=== PATIENT | male | born 1965 ===

== ENCOUNTER 2021-02-04 11:02 | Inpatient (IN) | payer OTHER ==
[~2021-02-04] VITALS: Ht 172.7 cm; Wt 115.8 kg
--- NOTE | 2021-02-04 11:10 | NUR ---
PATIENT ARRIVES TO THE ER WITH COVID LIKE SYMPTOMS FOR 4 DAYS, HE IS UNVACCINATED. HE IS COUGHING, SOB, WEAK, FEVERS, AND BODY PAIN JORDAN NECK PAIN AND HEADACHE; HE HAS ABDOMINAL PAIN AND N/V AND DIARREA. HE IS ON ELIQUIS FOR PE AND THREE HEART ATTACK HX
--- NOTE | 2021-02-04 11:56 | NUR ---
patient got up oob and walking about room. asked him to please stay in the bed.
[2021-02-04 11:59] LABS: BASOPHILS % (AUTO) 0 % (0-1); EOSINOPHILS % (AUTO) 0 % (1-7); LYMPHOCYTES % (AUTO) 12 % (22-44); MEAN CORPUSCULAR HEMOGLOBIN 28.3 pg (27.5-34.5); MEAN CORPUSCULAR HGB CONC 34.4 g/dL (33.2-36.2); MEAN PLATELET VOLUME 9.4 fL (7.4-10.4); MONOCYTES % (AUTO) 7 % (2-9); NEUTROPHILS % (AUTO) 81 % (42-75); PLATELET COUNT 122 x10^3/uL (130-400); RED BLOOD COUNT 5.69 x10^6/uL (4.38-5.82); RED CELL DISTRIBUTION WIDTH 14.6 % (9.4-14.8)
[2021-02-04 12:05] LABS: ALANINE AMINOTRANSFERASE 39 U/L (12-78); ALBUMIN 2.9 g/dL (3.4-5.0); ANION GAP 6 mmol/L (5-15); CALCIUM 7.9 mg/dL (8.5-10.1); CHLORIDE 110 mmol/L (98-107); CREATININE 1.14 mg/dL (0.7-1.3)
[2021-02-04 12:12] LABS: ALKALINE PHOSPHATASE 90 U/L (45-117); BILIRUBIN,TOTAL 0.4 mg/dL (0.2-1.0); TOTAL PROTEIN 6.4 g/dL (6.4-8.2)
[2021-02-04] MEDS ORDERED: CEFTRIAXONE 1,000 MG in DEXTROSE 5% 50 ML IVPB ONE (13:00)
[2021-02-04] MEDS ORDERED: AZITHROMYCIN 500 MG in SODIUM CHLORIDE 0.9% 250 ML IV ONE (13:00)
--- NOTE | 2021-02-04 13:39 | NUR ---
PATIENT REPORT TO WANDA. PATIENT RTG.
[2021-02-04] MEDS ORDERED: DOCUSATE 100 MG CAPSULE PO PRN (14:30)
[2021-02-04] MEDS ORDERED: PROCHLORPERAZINE 5 MG/ML, 2ML IVPush PRN (14:30)
[2021-02-04] MEDS ORDERED: morphine SULFATE 10 MG/ML, 1ML IVPush PRN (14:30)
[2021-02-04] MEDS ORDERED: PLEASE ENTER ALLERGIES MC SCH ×2 (14:30→15:30)
[2021-02-04] MEDS ORDERED: LIDODERM 5% PATCH TD PRN (14:30)
[2021-02-04] MEDS ORDERED: hydrALAzine 20 MG/ML, 1ML IVPush PRN (14:30)
[2021-02-04] MEDS ORDERED: POLYETHYLENE GLYCOL 17 GM PACKET PO PRN (14:30)
[2021-02-04] MEDS ORDERED: KETOROLAC 30 MG/1 ML IV PRN (14:30)
[2021-02-04] MEDS ORDERED: ENALAPRILAT 1.25 MG/ML, 2ML IVPush PRN (14:30)
[2021-02-04] MEDS ORDERED: TRAZODONE 50MG TABLET PO PRN (14:30)
[2021-02-04] MEDS ORDERED: BISACODYL 10 MG SUPP PR PRN (14:30)
[2021-02-04] MEDS ORDERED: GUAIFENESIN/DM 200-20MG, 10ML UDC PO PRN (14:30)
[2021-02-04] MEDS ORDERED: PHARMACY MAY ADJ FOR RENAL FX MC PRN (14:30)
[2021-02-04] MEDS ORDERED: DEXAMETHASONE 4 MG/ML, 1ML IVPush ONE (14:30)
[2021-02-04 14:45] VITALS: BP 129/79
[2021-02-04] MEDS: ONDANSETRON 2MG/ML, 2ML IVPush PRN (16:06)
[2021-02-04 18:50] VITALS: BP 107/68
[2021-02-04] MEDS: APIXABAN 5 MG TABLET PO SCH (22:15)
[2021-02-04] MEDS: ASCORBIC ACID 500 MG TABLET PO SCH (22:15)
[2021-02-04] MEDS: FAMOTIDINE 20 MG/2 ML IVPush SCH (22:15)
[2021-02-04] MEDS: CYCLOBENZAPRINE 10 MG TABLET PO PRN (22:15)
[2021-02-05 01:50] VITALS: BP 96/57
[2021-02-05 06:07] LABS: BASOPHILS % (AUTO) 0 % (0-1); EOSINOPHILS % (AUTO) 0 % (1-7); LYMPHOCYTES % (AUTO) 21 % (22-44); MEAN CORPUSCULAR HEMOGLOBIN 28.3 pg (27.5-34.5); MEAN CORPUSCULAR HGB CONC 34.5 g/dL (33.2-36.2); MEAN PLATELET VOLUME 9.1 fL (7.4-10.4); MONOCYTES % (AUTO) 12 % (2-9); NEUTROPHILS % (AUTO) 67 % (42-75); PLATELET COUNT 129 x10^3/uL (130-400); RED BLOOD COUNT 5.43 x10^6/uL (4.38-5.82); RED CELL DISTRIBUTION WIDTH 14.8 % (9.4-14.8)
[2021-02-05 06:10] LABS: CHLORIDE 110 mmol/L (98-107)
[2021-02-05 06:19] LABS: ALANINE AMINOTRANSFERASE 42 U/L (12-78); ALBUMIN 2.6 g/dL (3.4-5.0); ALKALINE PHOSPHATASE 83 U/L (45-117); ANION GAP 4 mmol/L (5-15); BILIRUBIN,TOTAL 0.4 mg/dL (0.2-1.0); CALCIUM 8.4 mg/dL (8.5-10.1); CREATININE 1.09 mg/dL (0.7-1.3); TOTAL PROTEIN 6.1 g/dL (6.4-8.2)
[2021-02-05 08:50] VITALS: BP 117/72
[2021-02-05] MEDS: ONDANSETRON 2MG/ML, 2ML IVPush PRN ×2 (09:03→16:42)
[2021-02-05] MEDS: DEXAMETHASONE 1 MG TABLET PO SCH (09:05)
[2021-02-05] MEDS: AZITHROMYCIN 500 MG TABLET PO SCH (09:05)
[2021-02-05] MEDS: FAMOTIDINE 20 MG/2 ML IVPush SCH ×2 (09:05→21:01)
[2021-02-05] MEDS: ZINC SULFATE 220 MG CAPSULE PO SCH (09:05)
[2021-02-05] MEDS: APIXABAN 5 MG TABLET PO SCH ×2 (09:05→21:01)
[2021-02-05] MEDS: ASCORBIC ACID 500 MG TABLET PO SCH ×2 (09:06→21:01)
[2021-02-05] MEDS: CYCLOBENZAPRINE 10 MG TABLET PO PRN ×2 (09:16→21:18)
[2021-02-05] MEDS ORDERED: ATOR20TA37 PO (11:30)
[2021-02-05] MEDS ORDERED: FURO-92 PO (11:30)
[2021-02-05] MEDS ORDERED: CHOL400T12 PO (11:30)
[2021-02-05] MEDS ORDERED: CARV3.122 PO (11:30)
[2021-02-05] MEDS ORDERED: ASPI81TA45 PO (11:30)
[2021-02-05] MEDS ORDERED: POTA10CA PO (11:30)
[2021-02-05] MEDS ORDERED: GABA100C PO ×2 (11:30)
[2021-02-05] MEDS ORDERED: MULT-252 PO (11:30)
[2021-02-05] MEDS ORDERED: FLUO40CA2 PO (11:30)
[2021-02-05] MEDS ORDERED: CARB200T4 PO (11:30)
[2021-02-05] MEDS ORDERED: VENL37.58 PO (11:30)
[2021-02-05] MEDS ORDERED: APIX5TAB PO (11:30)
[2021-02-05] MEDS ORDERED: OMEP-110 PO (11:30)
[2021-02-05] MEDS ORDERED: TOPI100T8 PO (11:30)
[2021-02-05] MEDS ORDERED: ONDA-89 PO (11:30)
[2021-02-05] MEDS ORDERED: MONT10TA17 PO (12:16)
[2021-02-05] MEDS ORDERED: ZOLP10TA PO (12:16)
[2021-02-05] MEDS ORDERED: CETI10TA18 PO (12:16)
[2021-02-05] MEDS ORDERED: LORA-445 PO (12:16)
[2021-02-05 12:26] VITALS: BP 109/70
[2021-02-05] MEDS: CEFTRIAXONE 1,000 MG in DEXTROSE 5% 50 ML IVPB SCH (12:36)
[2021-02-05 19:29] VITALS: BP 105/61
[2021-02-06 00:59] VITALS: BP 116/71
[2021-02-06 06:34] LABS: BASOPHILS % (AUTO) 0 % (0-1); EOSINOPHILS % (AUTO) 0 % (1-7); LYMPHOCYTES % (AUTO) 9 % (22-44); MEAN CORPUSCULAR HEMOGLOBIN 28.8 pg (27.5-34.5); MEAN CORPUSCULAR HGB CONC 35.1 g/dL (33.2-36.2); MEAN PLATELET VOLUME 9.2 fL (7.4-10.4); MONOCYTES % (AUTO) 8 % (2-9); NEUTROPHILS % (AUTO) 83 % (42-75); PLATELET COUNT 169 x10^3/uL (130-400)
[2021-02-06 06:36] LABS: CHLORIDE 112 mmol/L (98-107)
[2021-02-06 06:43] LABS: ANION GAP 6 mmol/L (5-15); CALCIUM 8.5 mg/dL (8.5-10.1); CREATININE 1.07 mg/dL (0.7-1.3)
[2021-02-06 08:45] VITALS: BP 116/74
[2021-02-06] MEDS: AZITHROMYCIN 500 MG TABLET PO SCH (09:00)
[2021-02-06] MEDS: CYCLOBENZAPRINE 10 MG TABLET PO PRN (09:00)
[2021-02-06] MEDS: DEXAMETHASONE 1 MG TABLET PO SCH (09:00)
[2021-02-06] MEDS: APIXABAN 5 MG TABLET PO SCH ×2 (09:00→20:15)
[2021-02-06] MEDS: ZINC SULFATE 220 MG CAPSULE PO SCH (09:00)
[2021-02-06] MEDS: FAMOTIDINE 20 MG/2 ML IVPush SCH ×2 (09:01→20:16)
[2021-02-06] MEDS: ASCORBIC ACID 500 MG TABLET PO SCH ×2 (09:01→20:15)
[2021-02-06] MEDS: CEFTRIAXONE 1,000 MG in DEXTROSE 5% 50 ML IVPB SCH (12:36)
[2021-02-06] MEDS ORDERED: CEFD300C37 PO (14:24)
[2021-02-06] MEDS ORDERED: DEXA1TAB5 PO (14:24)
[2021-02-06] MEDS ORDERED: DEXA6TAB6 PO (14:24)
[2021-02-06] MEDS ORDERED: AZIT500T10 PO (14:24)
[2021-02-06 16:00] VITALS: BP 105/72
[2021-02-06 19:54] VITALS: BP 134/80
== END 2021-02-06 20:55 | disposition home or self-care (01) | DRG 177 ==
LOC: ED 14:32 → 3N 14:40
PROVIDERS: ADMIT Hospitalist; ATTEND Family Medicine
DX: U07.1 COVID-19 (principal); J12.82 Pneumonia due to coronavirus disease 2019; J96.01 Acute respiratory failure with hypoxia; R65.10 Systemic inflammatory response syndrome (SIRS) of non-infectious origin without acute organ dysfunction; F32.9 Major depressive disorder, single episode, unspecified; J30.2 Other seasonal allergic rhinitis; Z60.2 Problems related to living alone; R51.9 Headache, unspecified; E66.9 Obesity, unspecified; I10 Essential (primary) hypertension; I25.10 Atherosclerotic heart disease of native coronary artery without angina pectoris; I25.2 Old myocardial infarction; Z68.35 Body mass index [BMI] 35.0-35.9, adult; Z79.01 Long term (current) use of anticoagulants; Z86.711 Personal history of pulmonary embolism; Z88.0 Allergy status to penicillin; Z88.5 Allergy status to narcotic agent; Z68.38 Body mass index [BMI] 38.0-38.9, adult
CPT/HCPCS: 36415; 71045; 80048; 80053; 82728; 83605; 83615; 85025; 86140; 87040; 93005; 96374; 96375; 99285; G0378; J0456; J0696; J1100; J1885; J2405; U0005; J7050; U0003